=== PATIENT | male | born 1960 | race Two or more races ===

== ENCOUNTER 2023-11-30 09:44 | Outpatient (REF) | payer MEDICAID, SELFPAY ==
--- NOTE | ~2023-11-30 | XR_ITS ---
EXAMINATION: XR KNEE, RIGHT CLINICAL INFORMATION: Pain COMPARISON: None available. TECHNIQUE: 5 views of the right knee. FINDINGS: No acute visible fracture or dislocation. Mild multi joint arthritic changes. Slight enthesopathy at the quadriceps tendon insertion site. Joint space alignment are otherwise maintained. Small knee joint effusion. Soft tissues are unremarkable. XR/XR knee RT 3V IMPRESSION: 1. No acute visible fracture or dislocation. 2. Mild multi joint arthritic changes. 3. Slight enthesopathy at the quadriceps tendon insertion site. 4. Small knee joint effusion.
== END 2023-11-30 09:45 | disposition home or self-care (01) ==
LOC: HO.HHCX 09:44
PROVIDERS: Visit Provider Student in an Organized Health Care Education/Training Program
DX: M25.561 Pain in right knee (principal)
CPT/HCPCS: 73562

== ENCOUNTER 2023-12-25 13:49 | Outpatient (REF) | payer MEDICAID, SELFPAY ==
[2023-12-25 14:50] LABS: MANUAL DIFF FLAG NO
[2023-12-25 14:55] LABS: Basophils Percent Auto 0.8 % (0-2); Eosinophils Percent Auto 0.8 % (0-4); Hematocrit 41.2 % (42.0-52.0); Hemoglobin 14.1 g/dl (14.0-18.0); Imm Gran Abs Auto 0.01 X10*3/uL (0.00-0.03); Imm Gran Pct Auto 0.3 % (0.0-0.4); Lymphocytes Absolute Auto 1.5 X10*3/uL (1.2-4.9); Mean Corpuscular HGB Conc 34.2 g/dl (31.0-36.0); Mean Corpuscular Hemoglobin 29.6 pg (27.0-33.0); Mean Corpuscular Volume 86.6 fL (80.0-98.0); Mean Platelet Volume 10.1 fL (9.4-12.4); Monocytes Absolute Auto 0.4 X10*3/uL (0.1-1.2); Monocytes Percent Auto 11.3 % (2-11); Neutrophils Absolute Auto 1.9 x10*3/uL (2.0-8.3); Neutrophils Percent Auto 47.8 % (45-73); Platelet Count 174 X10*3/uL (160-400); Red Blood Count 4.76 X10*6/uL (4.60-5.80); Red Cell Distribution Width 12.5 % (11.0-16.0); White Blood Count 3.9 X10*3/uL (4.8-10.8)
[2023-12-25 15:37] LABS: Alanine Aminotransferase 190 U/L (0-40); Albumin Level 4.1 g/dL (3.5-5.0); Alkaline Phosphatase 88 U/L (39-117); Anion Gap 9 (12-20); Aspartate Amino Transferase 123 U/L (5-37); Bilirubin Total 0.8 mg/dL (0.0-1.0); Blood Urea Nitrogen 14 mg/dL (9-16); Calcium 9.2 mg/dL (8.4-10.2); Carbon Dioxide 27 mmol/L (22-29); Chloride 109 mmol/L (96-108); Cholesterol 147 mg/dL (<200); Estimated Glomerular Filt Rate > 60; Glucose Random 97 mg/dL (60-115); HDL Cholesterol 60 mg/dL (>40); LDL Cholesterol Calculated 79 mg/dL (<100); Sodium 141 mmol/L (135-145); Total Protein 7.4 g/dL (6.5-8.0); Triglycerides 43 mg/dL (<150)
[2023-12-26 07:40] LABS: ~HepC Num1 16.62 S/CO (0.00-0.79); ~Hepatitis C Antibody Reactive (Nonreactive)
[2023-12-28 18:24] LABS: HCV Log PCR 6.71 Log IU/mL (NOT DETECTED); HepC Viral Load 5080000 IU/mL (NOT DETECTED)
== END 2023-12-25 13:50 | disposition home or self-care (01) ==
LOC: HO.CHCLDS 13:49
PROVIDERS: Visit Provider Internal Medicine
DX: B18.2 Chronic viral hepatitis C (principal); B35.1 Tinea unguium; R03.0 Elevated blood-pressure reading, without diagnosis of hypertension
CPT/HCPCS: 36415; 80053; 80061; 84153; 84443; 85025; 86803; 87522

== ENCOUNTER 2024-04-12 10:39 | Outpatient (REF) | payer MEDICAID, SELFPAY ==
--- NOTE | ~2024-04-12 | US_ITS ---
EXAMINATION: US ABDOMEN COMPLETE CLINICAL INFORMATION: History of hepatitis C and transaminitis. COMPARISON: None available. TECHNIQUE: Real-time imaging of the abdominal viscera. Severely limited visualization due to bowel gas. FINDINGS: PANCREAS: Limited visualization of pancreatic tail and head. Imaged portion of pancreatic body is unremarkable. ABDOMINAL AORTA: The proximal, mid, and distal segments are normal in caliber. INFERIOR VENA CAVA: Visualized portions are normal. LIVER: Increased hepatic parenchymal heterogeneity and echogenicity could be associated with hepatocellular disease/hepatic steatosis and substantially limits visualization. Lobulation of the hepatic contour. Correlation with liver function tests and clinical exam recommended to determine further management. GALLBLADDER: No gallstones. No gallbladder wall thickening. COMMON BILE DUCT: 0.7 cm in diameter. RIGHT KIDNEY: No hydronephrosis. No renal calculi. Limited visualization. The kidney measures 9.8 cm in maximum dimension. LEFT KIDNEY: No hydronephrosis. No renal calculi. Limited visualization. The kidney measures 11.2 cm in maximum dimension. SPLEEN: Normal. The spleen measures 9.9 cm in maximum dimension. FREE FLUID: None. US/US abdomen complete IMPRESSION: Increased hepatic parenchymal heterogeneity and echogenicity could be associated with hepatocellular disease/hepatic steatosis and substantially limits visualization. Lobulation of the hepatic contour. Correlation with liver function tests and clinical exam recommended to determine further management.
== END 2024-04-12 10:40 | disposition home or self-care (01) ==
LOC: HO.US 10:39
PROVIDERS: PCP Internal Medicine; Visit Provider Internal Medicine
DX: B19.20 Unspecified viral hepatitis C without hepatic coma (principal)
CPT/HCPCS: 76700

== ENCOUNTER 2024-06-24 13:25 | Outpatient (REF) | payer MEDICAID, SELFPAY ==
[2024-06-24 14:15] LABS: INTERNATIONAL NORM RATIO 1.1 (0.9-1.1); Prothrombin Time 13.4 SEC (11.1-13.3)
[2024-06-25 08:23] LABS: HBS Num1 19.16 mIU/mL (0-7.99); HBc Num1 0.18 S/CO (0.00-0.79); HBsAGNum1 0.51 S/CO (0.00-0.99); HIV AB/AG Nonreactive (Nonreactive); HIV Num 1 0.09 S/CO (0.00-0.99); Hepatitis B Core Antibody Nonreactive (Nonreactive); Hepatitis B Surface Antigen Negative (Negative); ~Hepatitis B Surface Antibody REACTIVE (Nonreactive)
[2024-06-25 08:25] LABS: Hepatitis A Antibody IgG REACTIVE (Nonreactive); ~Hepatitis A Antibody IgG 10.66 S/CO (0.00-0.99)
[2024-07-01 01:39] LABS: FIB-ALT 27 U/L (9-46); FIB-Alpha-2-Macroglobulin 295 mg/dL (106-279); FIB-Apolipoprotein A1 159 mg/dL (94-176); FIB-GGT 23 U/L (3-70); FIB-Haptoglobin 43 mg/dL (43-212); FIB-Total Bilirubin 0.9 mg/dL (0.2-1.2); Liver Fibrosis Score 0.66; Liver Fibrosis Stage F3; Nec Inflam Act Grade A0-A1
== END 2024-06-24 13:26 | disposition home or self-care (01) ==
LOC: HO.CHCLDS 13:25
PROVIDERS: Visit Provider Internal Medicine
DX: B19.20 Unspecified viral hepatitis C without hepatic coma (principal)
CPT/HCPCS: 36415; 81596; 85610; 86704; 86706; 86708; 87340; 87389

== ENCOUNTER 2024-07-08 13:54 | Outpatient (REF) | payer MEDICAID, SELFPAY ==
[2024-07-09 09:09] LABS: ~HepC Num1 15.68 S/CO (0.00-0.79); ~Hepatitis C Antibody Reactive (Nonreactive)
[2024-07-10 13:27] LABS: HCV Log PCR 6.58 Log IU/mL (NOT DETECTED); HepC Viral Load 3770000 IU/mL (NOT DETECTED)
[2024-07-12 10:28] LABS: HCV Log PCR 6.73 Log IU/mL (NOT DETECTED)
[2024-07-12 20:43] LABS: Hepatitis C Genotype 1a
== END 2024-07-08 13:55 | disposition home or self-care (01) ==
LOC: HO.CHCLDS 13:54
PROVIDERS: Visit Provider Internal Medicine
DX: B19.20 Unspecified viral hepatitis C without hepatic coma (principal)
CPT/HCPCS: 36415; 86803; 87522; 87902